=== PATIENT | female | born 1950 | race Two or more races ===

== ENCOUNTER 2022-05-30 08:12 | Outpatient (CLI) | payer OTHER | END 2022-05-30 23:00 | disposition home or self-care (01) | LOC: LAB 08:12 | PROVIDERS: ATTEND Internal Medicine Hematology & Oncology | DX: D50.8 Other iron deficiency anemias (principal); R79.9 Abnormal finding of blood chemistry, unspecified; I10 Essential (primary) hypertension; R74.02 Elevation of levels of lactic acid dehydrogenase [LDH]; K76.89 Other specified diseases of liver; D51.8 Other vitamin B12 deficiency anemias; C50.919 Malignant neoplasm of unspecified site of unspecified female breast; R97.8 Other abnormal tumor markers; D63.1 Anemia in chronic kidney disease ==

== ENCOUNTER 2023-05-24 07:33 | Outpatient (CLI) | payer OTHER | END 2023-05-24 07:39 | disposition home or self-care (01) | LOC: RX STUDY 07:33 | PROVIDERS: ATTEND Internal Medicine Geriatric Medicine | DX: R13.10 Dysphagia, unspecified (principal) ==